=== PATIENT | male | born 1955 | race Caucasian/White ===

== ENCOUNTER 2023-02-14 14:23 | Emergency (ER) | payer BC, OTHER ==
[~2023-02-14] VITALS: Ht 190.5 cm; Wt 83.9 kg
--- NOTE | 2023-02-14 14:30 | NUR ---
Pt walked in to ER with c/o dizziness x1 day, denies any DO or n/v at this time. No other history to report. HTN noted upon arrival, aware.
--- NOTE | 2023-02-14 14:33 | NUR ---
Patient to ER bed 05 to gown for evaluation. Side rails up.
[2023-02-14 14:34] VITALS: BP_SYST 159
--- NOTE | 2023-02-14 14:35 | NUR ---
Note rossyleonardo in [facility] - 02/14/23 at 1530 by [email or web address] Pt bib daughter with c/o pain 05/28 to right shoulder and rib, s/p fall approx 6 days ago. Denies any other trauma, no currently on blood thinners. V/S stable.
--- NOTE | 2023-02-14 14:40 | NUR ---
Shayla rivera in [facility] - 02/14/23 at 1530 by [email or web address] HILARIO Will at bedside examining patient.
--- NOTE | 2023-02-14 14:40 | NUR ---
ER Dr. Will at bedside examining patient.
[2023-02-14] MEDS ORDERED: ENALAPRILAT DIHYDRATE 1.25 MG/ML VIAL IVP ONE (15:00)
[2023-02-14] MEDS ORDERED: TELM80TA2 PO (17:31)
[2023-02-14 17:39] VITALS: BP_SYST 154
--- NOTE | 2023-02-14 17:41 | NUR ---
Patient given written and verbal discharge instructions and verbalizes understanding. ER MD discussed with patient the results and treatment provided. Patient in stable condition. ID arm band removed. IV catheter removed intact and dressing applied, no active bleeding. Patient educated on pain management and to follow up with PMD. Pain Scale 0. Opportunity for questions provided and answered. Medication side effect fact sheet provided.
== END 2023-02-14 17:39 | disposition home or self-care (01) ==
LOC: SED 14:23
DX: R42 Dizziness and giddiness (principal); I10 Essential (primary) hypertension; Z79.899 Other long term (current) drug therapy
CPT/HCPCS: 70450-TC; 72125-TC; 76376; 96374; 99285

== ENCOUNTER 2023-05-08 16:21 | Emergency (ER) | payer BC, OTHER ==
[~2023-05-08] VITALS: Ht 193 cm; Wt 83.0 kg
[~2023-05-08 16:21] MED LIST: TELM80TA2 PO
[2023-05-08 17:15] VITALS: BP_SYST 150; PULSE 85; RESP 20; TEMP 98.3; O2SAT 98
[2023-05-08] MEDS ORDERED: iohexoL 350 mgI/mL, 100 ML INFUS..BTL IV ONE (19:02)
[2023-05-08 19:35] LABS: BASOPHILS % (AUTO) 0.5 % (0.0-2.0); EOSINOPHILS # (AUTO) 0.3 K/uL (0.0-0.4); EOSINOPHILS % (AUTO) 4.2 % (0.0-4.0); HEMATOCRIT 38.3 % (36-54); HEMOGLOBIN 12.6 g/dL (14.0-18.0); LYMPHOCYTES # (AUTO) 1.6 K/uL (1.0-5.5); LYMPHOCYTES % (AUTO) 24.3 % (20.5-51.5); MEAN CORPUSCULAR HEMOGLOBIN 30 pg (27-31); MEAN CORPUSCULAR HGB CONC 33 % (32-36); MEAN CORPUSCULAR VOLUME 90 fL (79.0-98.0); MONOCYTES # (AUTO) 0.8 K/uL (0.0-1.0); MONOCYTES % (AUTO) 11.8 % (1.7-9.3); NEUTROPHILS % (AUTO) 59.2 % (40.0-70.0); PLATELET COUNT (AUTO) 233 K/uL (130-430); RED BLOOD CELL COUNT(AUTO) 4.25 MIL/uL (4.2-6.2); RED CELL DISTRIBUTION WIDTH 13.2 % (9.0-15.0); WHITE BLOOD COUNT (AUTO) 6.7 K/uL (4.8-10.8)
[2023-05-08 19:37] LABS: CALCIUM 9.5 mg/dL (8.4-11.0); CREATININE 1.45 mg/dL (0.55-1.30); POTASSIUM 3.8 mmol/L (3.5-5.1)
[2023-05-08 19:42] LABS: ALBUMIN 3.8 g/dL (3.4-4.8); TOTAL BILIRUBIN 0.3 mg/dL (0.0-1.0); TOTAL PROTEIN, SERUM 7.7 g/dL (6.4-8.3)
[2023-05-08 23:12] VITALS: BP_SYST 155; PULSE 89; RESP 20; TEMP 98.3; O2SAT 98
== END 2023-05-08 23:12 | disposition home or self-care (01) ==
LOC: SED 16:21
DX: R42 Dizziness and giddiness (principal); R55 Syncope and collapse; I10 Essential (primary) hypertension; Z79.899 Other long term (current) drug therapy
CPT/HCPCS: 99285; 71275; 80053; 85025; 36415; 70496; 70498; 76376; Q9967 ×2